=== PATIENT | female | born 1975 | race Caucasian/White ===

== ENCOUNTER → 2017-02-02 | Outpatient (CLI) | payer MEDICAID ==
--- NOTE | 2017-02-02 12:14 | Diagnostic Imaging Report ---
INDICATION: Left hip pain and paresthesia AP and frogleg views of the left hip are obtained. FINDINGS: No acute fracture or dislocation is identified. No abnormal lytic or sclerotic focus is seen, and there is no radiopaque foreign body. IMPRESSION: No acute abnormality. Dictated by: Dictated on workstation # [id number]
== END ==
LOC: RAD 11:55
PROVIDERS: ATTEND Family Medicine
DX: M25.552 Pain in left hip (principal)
CPT/HCPCS: 73502

== ENCOUNTER → 2017-02-16 | Outpatient (CLI) | payer MEDICAID ==
[2017-02-16 11:50] LABS: MEAN PLATELET VOLUME 10.8 FL (7.4-10.4); RED BLOOD COUNT 4.92 10^6/uL (4.35-5.85); RED CELL DISTRIBUTION WIDTH 12.7 % (10.0-14.5); WHITE BLOOD COUNT 10.8 10^3/uL (4.3-11.0)
[2017-02-16 12:05] LABS: ALANINE AMINOTRANSFERASE 16 U/L (0-55); ALBUMIN 4.3 GM/DL (3.2-4.5); ANION GAP 9 MMOL/L (5-14); ASPARTATE AMINO TRANSFERASE 14 U/L (5-34); BILIRUBIN,TOTAL 0.3 MG/DL (0.1-1.0); BLOOD UREA NITROGEN 8 MG/DL (7-18); BUN/CREATININE RATIO 9; CALCIUM 9.6 MG/DL (8.5-10.1); CARBON DIOXIDE 29 MMOL/L (21-32); CHLORIDE 102 MMOL/L (98-107); CREATININE SERUM 0.87 MG/DL (0.60-1.30); GFR ESTIMATED > 60; GLUCOSE 87 MG/DL (70-105); POTASSIUM 2.9 MMOL/L (3.6-5.0); SODIUM 140 MMOL/L (135-145)
== END ==
LOC: LAB 11:31
PROVIDERS: ATTEND Family Medicine
DX: E53.8 Deficiency of other specified B group vitamins (principal); R53.83 Other fatigue
CPT/HCPCS: 36415; 80053; 82607; 85027; 85652; 86038; 86430

== ENCOUNTER → 2017-04-09 | Outpatient (CLI) | payer MEDICAID ==
[2017-04-09 11:37] LABS: BASOPHILS # (AUTO) 0.1 10^3/uL (0.0-0.1); BASOPHILS % (AUTO) 1 % (0-10); EOSINOPHILS # (AUTO) 0.3 10^3/uL (0.0-0.3); EOSINOPHILS % (AUTO) 3 % (0-10); HEMATOCRIT 36 % (35-52); HEMOGLOBIN 13.9 G/DL (11.5-16.0); LYMPHOCYTES # (AUTO) 2.4 X 10^3 (1.0-4.0); LYMPHOCYTES % (AUTO) 25 % (12-44); MEAN CORPUSCULAR HEMOGLOBIN 29 PG (25-34); MEAN CORPUSCULAR HGB CONC 39 G/DL (32-36); MEAN CORPUSCULAR VOLUME 74 FL (80-99); MONOCYTES # (AUTO) 0.5 X 10^3 (0.0-1.0); MONOCYTES % (AUTO) 5 % (0-12); NEUTROPHILS # (AUTO) 6.3 X 10^3 (1.8-7.8); NEUTROPHILS % (AUTO) 66 % (42-75); PLATELET COUNT 304 10^3/uL (130-400); RED BLOOD COUNT 4.79 10^6/uL (4.35-5.85); RED CELL DISTRIBUTION WIDTH 13.1 % (10.0-14.5); WHITE BLOOD COUNT 9.5 10^3/uL (4.3-11.0)
[2017-04-09 11:54] LABS: URIC ACID 4.9 MG/DL (2.6-7.2)
[2017-04-09 11:58] LABS: ERYTHROCYTE SEDIMENTATION RATE 7 MM/HR (0-20)
== END ==
LOC: LAB 11:21
PROVIDERS: ATTEND Nurse Practitioner Family
DX: M79.1 Myalgia (principal); M25.50 Pain in unspecified joint
CPT/HCPCS: 36415; 84550; 85025; 85652; 86038; 86141; 86200; 86430

== ENCOUNTER → 2017-04-13 | Outpatient (CLI) | payer MEDICAID ==
[~2017-04-13] VITALS: Ht 157.5 cm; Wt 67.1 kg
[~2017-04-13] MED LIST: GADOBUTROL 7.5 MMOL/7.5 ML (GADAVIST) VIAL IV ONE; IOHEXOL 300 MG/ML 50 ML (OMNIPAQUE 300) VIAL IV ONE
[2017-04-13 09:10] VITALS: BP 127/80
[2017-04-13 09:34] VITALS: BP 121/60
--- NOTE | 2017-04-13 10:57 | Diagnostic Imaging Report ---
EXAMINATION: Magnetic resonance imaging of the left shoulder with intra-articular contrast. DATE: 04/13/2017. COMPARISON: Left shoulder arthrogram 04/13/2017. HISTORY: 41-year-old female, left shoulder pain. No known injury. TECHNIQUE: Magnetic Resonance Imaging sequences were performed of the shoulder following the intra-articular administration of contrast. FINDINGS: ROTATOR CUFF, LIGAMENTS, TENDONS, AND MUSCLES: There is contrast in the subacromial subdeltoid bursa. The communication appears to be via the very posterior aspect of the supraspinatus tendon near the supraspinatus infraspinatus junction with very thin communication estimated at approximately 2 mm in width. This is difficult to visualize on the coronal sequences. There is no tendon retraction. The infraspinatus, teres minor, and subscapularis tendons are intact. There is normal rotator cuff muscle bulk and signal. LONG HEAD OF BICEPS: The biceps labral attachment and long head of the biceps tendon is intact. The long head of the biceps tendon is normally positioned within the bicipital groove. GLENOHUMERAL JOINT: The humeral head is well positioned relative to the glenoid. The labrum is intact. There is no identified paralabral cyst. The articular cartilage is grossly intact. There is no intra-articular body or prominent synovitis. ACROMIOCLAVICULAR JOINT: The acromioclavicular joint is normally aligned. The coracoclavicular and coracoacromial ligaments are intact. There are no degenerative changes of the acromioclavicular joint. BONE: The bones all have normal configuration. The bone marrow signal is within normal limits. Specifically, negative for fracture, osteomyelitis, osteonecrosis, or marrow replacing process. BURSAE AND SOFT TISSUES: There is contrast in the subacromial subdeltoid bursa. Additional soft tissue evaluation is unremarkable. IMPRESSION: 1. Mild irregularity of the posterior aspect of the supraspinatus tendon with extension of contrast into the subacromial subdeltoid bursa through the posterior aspect of the supraspinatus tendon. This likely relates to a thin perforation of the tendon. There is no tendon retraction. The additional rotator cuff tendons are intact. Normal rotator cuff muscle bulk and signal. 2. Intact acromioclavicular joint. 3. Intact labrum. Glenohumeral joint evaluation is unremarkable. 4. No acute fracture, bone contusion, or evidence of osteonecrosis. Dictated by: Dictated on workstation # [id number]
--- NOTE | 2017-04-13 11:10 | Diagnostic Imaging Report ---
INDICATION: Shoulder pain. PROCEDURE: The patient was placed on the table in the supine position. The patient's shoulder was prepped and draped in the usual sterile fashion. Local anesthesia was obtained with 2% lidocaine. A needle was advanced into the glenohumeral joint under fluoroscopic control. A mixture of saline, Omnipaque and gadolinium was then infused. The needle was removed and adequate hemostasis was obtained. The patient tolerated the procedure well and left the department in stable condition. IMPRESSION: Successful shoulder injection prior to MRI, as described above. Dictated by: Dictated on workstation # [id number]
== END ==
LOC: RAD 08:55
PROVIDERS: ATTEND Nurse Practitioner Family
DX: M75.82 Other shoulder lesions, left shoulder (principal)
CPT/HCPCS: 23350; 73040; 73222

== ENCOUNTER 2018-06-06 16:11 | Emergency (ER) | payer MEDICAID ==
[~2018-06-06] VITALS: Ht 152.4 cm; Wt 70.3 kg
[2018-06-06] MEDS ORDERED: TETANUS,DIPTH,PERTUSS P/F (BOOSTRIX) 0.5 ML VIAL IM ONE (16:30)
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
[2018-06-06 18:14] VITALS: BP 109/79
--- OUTSIDE RECORDS SUMMARY | 2018-06-06 18:40 | XMS REPORT ---
Author Author ALPHONSE DEXTER Organization [facility] Address [address] [place] [address] Care Team Providers Care Flavor Extractor Name Role Phone ALPHONSE DEXTER Unavailable PROBLEMS Type Condition ICD9-CM Code [id number] Code Onset Dates Condition Status SNOMED Code Problem Fibromyalgia M79.7 Active 828750296 Problem History of vitamin B deficiency Z86.39 Active 710727228 ALLERGIES No Information ENCOUNTERS Encounter Location Date Diagnosis [place] [id number] [place] [phone] Nov, [place] [id number] [place] [address] [phone]- [phone] Nov, Fibromyalgia M79.7 [place] [id number] [place] [address] [phone]- [phone] Nov, Fibromyalgia M79.7 [place] [id number] [place] [address] [phone]- [phone] Nov, [place] [id number] [place] [address] [phone] Nov, Fibromyalgia M79.7 [place] [id number] [place] [address] [phone]- [phone] Oct, Myalgia M79.1 and History of vitamin B deficiency Z86.39 IMMUNIZATIONS No Known Immunizations SOCIAL HISTORY Never Assessed REASON FOR VISIT PLAN OF CARE VITAL SIGNS MEDICATIONS Medication Instructions Dosage Frequency Start Date End Date Duration Status Cymbalta 30 MG Orally 3 times a day 1 capsule 8h Nov, 30 day(s ) Active RESULTS No Results PROCEDURES No Known procedures INSTRUCTIONS MEDICATIONS ADMINISTERED No Known Medications MEDICAL (GENERAL) HISTORY Type Description Date Medical History Depression Medical History Anxiety Surgical History Kidney Surgery Surgical History x3 Surgical History Hernia repair 2014 Surgical History Tubal ligation 2014 Hospitalization History Psychiatric stay 2006
--- OUTSIDE RECORDS SUMMARY | 2018-06-06 18:40 | XMS REPORT ---
Author Author ALPHONSE DEXTER Organization [facility] [place] Address [address] [place] [address] Care Team Providers Care Microsoft Net Developer Name Role Phone ALPHONSE DEXTER Unavailable PROBLEMS Type Condition ICD9-CM Code MAE43-FF Code Onset Dates Condition Status SNOMED Code Problem Fibromyalgia M79.7 Active 161495498 Problem History of vitamin B deficiency Z86.39 Active 838782344 ALLERGIES No Information ENCOUNTERS Encounter Location Date Diagnosis [place] [id number] [place] [address] [phone] Nov, [place] [id number] [place] [address] [phone]- [phone] Nov, Fibromyalgia M79.7 [facility] [place] [id number] [place] [address] 33265- [phone] Nov, Fibromyalgia M79.7 [facility] [place] [id number] [place] [address] [phone]- [phone] Nov, [facility] [place] [id number] [place] [address] [phone]- [phone] Nov, Fibromyalgia M79.7 [facility] [place] [id number] [place] [address] [phone]- [phone] Oct, Myalgia M79.1 and History of vitamin B deficiency Z86.39 IMMUNIZATIONS No Known Immunizations SOCIAL HISTORY Never Assessed REASON FOR VISIT Medication question PLAN OF CARE VITAL SIGNS MEDICATIONS Unknown Medications RESULTS No Results PROCEDURES No Known procedures INSTRUCTIONS MEDICATIONS ADMINISTERED No Known Medications MEDICAL (GENERAL) HISTORY Type Description Date Medical History Depression Medical History Anxiety Surgical History Kidney Surgery Surgical History x3 Surgical History Hernia repair 2014 Surgical History Tubal ligation 2014 Hospitalization History Psychiatric stay 2005
--- OUTSIDE RECORDS SUMMARY | 2018-06-06 18:40 | XMS REPORT ---
Author Author ALPHONSE DEXTER Organization [facility] Address [address] [place] [address] Care Team Providers Care Transit Survey Worker Name Role Phone ALPHONSE DEXTER Unavailable PROBLEMS Type Condition ICD9-CM Code ZPQ65-NX Code Onset Dates Condition Status SNOMED Code Problem Fibromyalgia M79.7 Active 219548675 Problem History of vitamin B deficiency Z86.39 Active 053171938 ALLERGIES No Information ENCOUNTERS Encounter Location Date Diagnosis [place] [id number] [place] [address] [phone] Nov, [place] [id number] [place] [address] [phone]- [phone] Nov, Fibromyalgia M79.7 [place] [id number] [place] [address] 55058- [phone] Nov, Fibromyalgia M79.7 [place] [id number] [place] [address] [phone] Nov, [place] [id number] [place] [address] 83262- [phone] Nov, Fibromyalgia M79.7 [place] [id number] [place] [address] [phone]- [phone] Oct, Myalgia M79.1 and History of vitamin B deficiency Z86.39 IMMUNIZATIONS No Known Immunizations SOCIAL HISTORY Never Assessed REASON FOR VISIT CAMRYN Navarro PLAN OF CARE VITAL SIGNS MEDICATIONS Medication Instructions Dosage Frequency Start Date End Date Duration Status Keppra 500 mg Orally Twice a day 1 tablet 12h Nov, 30 day(s) Active RESULTS No Results PROCEDURES No Known procedures INSTRUCTIONS MEDICATIONS ADMINISTERED No Known Medications MEDICAL (GENERAL) HISTORY Type Description Date Medical History Depression Medical History Anxiety Surgical History Kidney Surgery Surgical History x3 Surgical History Hernia repair 2014 Surgical History Tubal ligation 2014 Hospitalization History Psychiatric stay 2006
--- OUTSIDE RECORDS SUMMARY | 2018-06-06 18:41 | XMS REPORT | Continuity of Care Document ---
Author Author [facility] Address [address] [place] [address] Care Team Providers Care Ocean Biologist Name Role Phone Eliza Cadet DO Unavailable Insurance Providers Payer Name Policy Number Subscriber Name Relationship [facility] [id number] IRINA BURKE PATIENT/SELF Problems No problem information available. Medications No medication information available. Social History No social history. Hospital Discharge Instructions No hospital discharge instructions. Plan of Care No plan of care. Functional Status No functional status results. Allergies, Adverse Reactions, Alerts Allergen Type Severity Reaction Status Last Updated UNABLE TO ASSESS Allergy Unknown Active 08/29/16 Immunizations No Known History of Immunizations. Vital Signs No Known Vital Signs Results. Results No known relevant diagnostic tests, laboratory data and/or discharge summary. Procedures No Known History of Procedures. Encounters Encounter Location Arrival/Admit Date Discharge/Depart Date Attending Provider Discharged [facility] 12/05/16 4:24pm 01/03/17 Eliza Cadet DO Discharged [facility] 11/25/16 3:41pm 12/04/16 Eliza Cadet DO Registered [facility] 11/20/16 10:14am Eliza Cadet DO Registered [facility] 11/13/16 6:51am Eliza Cadet DO Registered [facility] 10/31/16 12:31pm Eliza Cadet DO
--- OUTSIDE RECORDS SUMMARY | 2018-06-06 18:41 | XMS REPORT ---
Author Author ALPHONSE DEXTER Organization [facility] Address [address] [place] [address] Care Team Providers Care Bias Machine Operator Helper Name Role Phone ALPHONSE DEXTER Unavailable PROBLEMS Type Condition ICD9-CM Code SNM14-RR Code Onset Dates Condition Status SNOMED Code Problem Fibromyalgia M79.7 Active 360320759 Problem History of vitamin B deficiency Z86.39 Active 679471522 ALLERGIES No Known Allergies ENCOUNTERS Encounter Location Date Diagnosis [place] [address] [phone]- [phone] Nov, [place] [address] 29628- 2476 Nov, Fibromyalgia M79.7 [place] [address] 90709- 5341 Nov, Fibromyalgia M79.7 [place] [address] [phone]- [phone] Nov, [place] [address] [id number] [place] [address] [phone]- [phone] Nov, Fibromyalgia M79.7 [place] [address] 81405- [phone] Oct, Myalgia M79.1 and History of vitamin B deficiency Z86.39 IMMUNIZATIONS No Known Immunizations SOCIAL HISTORY Never Assessed REASON FOR VISIT Establish Care - ROSANGELA Early, PHQ2, AUDIT C PLAN OF CARE Activity Details Follow Up Will call after review of records Reason: VITAL SIGNS Height 61.5 in 2017-10-27 Weight 152.5 lbs 2017-10-27 Temperature 98.4 degrees Fahrenheit 2017-10-27 Heart Rate 78 bpm 2017-10-27 Respiratory Rate 20 2017-10-27 BMI 28.34 kg/m2 2017-10-27 Blood pressure systolic 108 mmHg 2017-10-27 Blood pressure diastolic 70 mmHg 2017-10-27 MEDICATIONS Medication Instructions Dosage Frequency Start Date End Date Duration Status Flexeril 10 orally PRN 1 tablet Active HydrOXYzine HCl 50 mg Orally PRN 1 tablet Active RESULTS No Results PROCEDURES Procedure Date Ordered Result Body Site LAB NOT BILLED BY [facility] October 27, 2017 VENNEDRA, ROUTINE* October 27, 2017 INSTRUCTIONS MEDICATIONS ADMINISTERED No Known Medications MEDICAL (GENERAL) HISTORY Type Description Date Medical History Depression Medical History Anxiety Surgical History Kidney Surgery Surgical History x3 Surgical History Hernia repair 2014 Surgical History Tubal ligation 2014 Hospitalization History Psychiatric stay 2006
--- OUTSIDE RECORDS SUMMARY | 2018-06-06 18:41 | XMS REPORT ---
Author Author ALPHONSE DEXTER Organization [facility] Address [address] [place] [address] Care Team Providers Care Real Estate Administrator Name Role Phone ALPHONSE DEXTER Unavailable PROBLEMS Type Condition ICD9-CM Code ULB45-TL Code Onset Dates Condition Status SNOMED Code Problem Fibromyalgia M79.7 Active 815666104 Problem History of vitamin B deficiency Z86.39 Active 351142083 ALLERGIES No Information ENCOUNTERS Encounter Location Date Diagnosis [place] [id number] [place] [address] [phone] Nov, [place] [id number] [place] [address] 49233- [phone] Nov, Fibromyalgia M79.7 [facility] [id number] [place] [address] [phone]- [phone] Nov, Fibromyalgia M79.7 [place] [id number] [place] [address] [phone]- [phone] Nov, [place] [id number] [place] [address] [phone]- [phone] Nov, Fibromyalgia M79.7 [place] [id number] [place] [address] 74403- 2354 Oct, Myalgia M79.1 and History of vitamin B deficiency Z86.39 IMMUNIZATIONS No Known Immunizations SOCIAL HISTORY Never Assessed REASON FOR VISIT PLAN OF CARE VITAL SIGNS MEDICATIONS Medication Instructions Dosage Frequency Start Date End Date Duration Status Lyrica 100 mg Orally 2 times a day 1 capsule 12h Nov, Active RESULTS No Results PROCEDURES No Known procedures INSTRUCTIONS MEDICATIONS ADMINISTERED No Known Medications MEDICAL (GENERAL) HISTORY Type Description Date Medical History Depression Medical History Anxiety Surgical History Kidney Surgery Surgical History x3 Surgical History Hernia repair 2014 Surgical History Tubal ligation 2013 Hospitalization History Psychiatric stay 2005
--- OUTSIDE RECORDS SUMMARY | 2018-06-06 18:41 | XMS REPORT | Continuity of Care Document ---
Author Author [facility] Address [address] [place] [address] Care Team Providers Care Smeller Name Role Phone Eliza Cadet DO Unavailable Insurance Providers Payer Name Policy Number Subscriber Name Relationship [facility] [id number] IRINA BURKE PATIENT/SELF Problems No problem information [...] Arrival/Admit Date Discharge/Depart Date Attending Provider Discharged Rec[facility]ring [facility] 08/21/16 11:02am 09/03/16 Eliza Cadet DO Registered [facility] 08/29/16 9:11am Eliza Cadet DO Registered [facility] 08/25/16 9:52am Eliza Cadet DO Registered [facility] 08/25/16 9:34am Eliza Cadet DO Registered [facility] 08/25/16 9:27am Eliza Cadet DO Registered [facility] 08/14/16 11:27am Eliza Cadte DO
--- OUTSIDE RECORDS SUMMARY | 2018-06-06 18:41 | XMS REPORT | Continuity of Care Document ---
Author Author [facility] Address [address] [place] [address] Care Team Providers Care Soa Engineer Name Role Phone Eliza Cadet DO Unavailable Insurance Providers Payer Name Policy Number Subscriber Name Relationship [facility] [id number] IRINA BURKE PATIENT/SELF Problems No problem information [...] Arrival/Admit Date Discharge/Depart Date Attending Provider Discharged [facility] 09/04/16 3:22pm 09/30/16 11: 41am Eliza Cadet DO Discharged [facility] 08/21/16 11:02am 09/03/16 Eliza Caedt DO Registered [facility] 08/29/16 9:11am Eliza Cadet DO Registered [facility] 08/25/16 9:52am Eliza Cadet DO Registered [facility] 08/25/16 9:34am Eliza Cadet DO Registered [facility] 08/25/16 9:27am Eliza Cadet DO Registered [facility] 08/14/16 11:27am Eliza Cadet DO
--- OUTSIDE RECORDS SUMMARY | 2018-06-06 18:41 | XMS REPORT | Continuity of Care Document ---
Author Author [facility] Address Unknown Phone Unavailable Allergies Active Description Code Type Severity Reaction Onset Reported/Identified Relationship to Patient Clinical Status Yes NO NAME AVAILABLE 69594 DRUG N/ A N/A Yes CODEINE 2670 N/A Vomiting Yes CODEINE SULFATE MODERATE GI PROBLEMS - NAUSEA Yes No Known Drug Allergy NKDA N/ A N/A 11/20/2016 Yes No Allergy Information Available [id number] Drug Allergy Unknown N/A 2017 Medications Medication Packaging Start Date Stop Date Route Dosage Sig Permethrin 50 MG/ML Topical Cream 04/11/2016 08/14/2016 1 Pravastatin Sodium 20 MG Oral Tablet 04/14/2016 11/20/2016 1 Q1D Esomeprazole 40 MG Delayed Release Oral Capsule 04/30/2016 08/14/2016 1 Q1D pantoprazole 40 MG Delayed Release Oral Tablet [Protonix] 06/04/2016 08/25/2016 1 Q1D Acetaminophen 325 MG / Hydrocodone Bitartrate 5 MG Oral Tablet 08/14/2016 08/25/2016 1 Prednisone 50 MG Oral Tablet 02/201708/25/2016 1 Q1D meloxicam 15 MG Oral Tablet [Mobic] 08/21/2016 1 Q1D Vitamin B 12 1 MG/ML Injectable Solution 08/27/2016 1 valacyclovir 1000 MG Oral Tablet [Valtrex] 09/02/2016 1 Cyclobenzaprine hydrochloride 10 MG Oral Tablet 10/31/2016 1 TID gabapentin 300 MG Oral Capsule 1 TID Diclofenac Sodium 75 MG Delayed Release Oral Tablet 11/20/2016 1 BID valacyclovir 1000 MG Oral Tablet [Valtrex] 11/21/2016 1 Esomeprazole 40 MG Delayed Release Oral Capsule [Nexium] 01/19/2017 1 Q1D METHYLPREDNISOLONE VIAL INJ 125 MG/2CC (SOLU-MEDROL VIAL) MG 02/13/2017 02/13/2017 ONCE&0215 Problems Date Dx Coded Attending Type Code Diagnosis Diagnosed By 04/15/2016 [place] DO, Eliza E F E78.5 Hyperlipidemia, unspecified [place] DO, Eliza E 04/15/2016 [place] DO, Eliza E F Z20.5 Contact with and (suspected) exposure to viral hepatitis [place] DO, Eliza E 08/14/2016 F M25.519 Pain in unspecified shoulder 08/18/2016 [place] DO, Eliza E F M25.512 Pain in left shoulder [place] DO, Eliza E 08/25/2016 F M79.642 Pain in left hand 08/25/2016 F R20.2 Paresthesia of skin 08/27/2016 [place] DO, Eliza E F R20.2 Paresthesia of skin [place] DO, Eliza E 08/27/2016 [place] DO, Eliza E F M79.642 Pain in left hand [place] DO, Eliza E 08/29/2016 F M79.642 Pain in left hand 08/29/2016 F R20.2 Paresthesia of skin 08/29/2016 F E53.8 Deficiency of other specified B group vitamins 09/02/2016 [place] DO, Eliza E F R20.2 Paresthesia of skin [place] DO, Eliza E 09/03/2016 [place] DO, Eliza E F J32.8 Other chronic sinusitis [place] DO, Eliza E 09/03/2016 [place] DO, Eliza E F R20.2 Paresthesia of skin [place] DO, Eliza E 09/11/2016 F E53.8 Deficiency of other specified B group vitamins 09/12/2016 [place] DO, Eliza E F M25.512 Pain in left shoulder [place] DO, Eliza E 10/09/2016 [place] DO, Eliza E F M25.512 Pain in left shoulder [place] DO, Eliza E 10/22/2016 [place], Ananya I F M25.812 Other specified joint disorders, left shoulder 10/31/2016 [place] DO, Eliza F M54.2 Cervicalgia 10/31/2016 [place] DO, Eliza F R25.2 Cramp and spasm 11/03/2016 [place], Ananya I F M25.812 Other specified joint disorders, left shoulder 11/04/2016 [place] DO, Eliza E F M54.2 Cervicalgia [place] DO, Eliza E 11/17/2016 [place] DO, Eliza E F M50.322 Other cervical disc degeneration at C5-C6 level [place] DO, Eliza E 11/20/2016 [place] DO, Eliza F M25.512 Pain in left shoulder 11/20/2016 [place] DO, Eliza F M54.5 Low back pain 11/20/2016 [place] DO, Eliza F M70.62 Trochanteric bursitis, left hip 11/20/2016 F E53.8 Deficiency of other specified B group vitamins 11/26/2016 [place] DO, Eliza E F M54.5 Low back pain [place] DO, Eliza E 12/17/2016 [place] DO, Eliza E F M25.552 Pain in left hip [place] DO, Eliza E 12/17/2016 [place] DO, Eliza E F M70.62 Trochanteric bursitis, left hip [place] DO, Eliza E 02/03/2017 YVES ANTOINE DO Ot M25.552 PAIN IN LEFT HIP 02/13/2017 Michael Chu 910.4 INSECT BITE, NONVENOMOUS OF FACE, NECK, AND SCALP EXCEPT EYE, WITHOUT MENTION OF INFECTION 02/13/2017 Michael Chu 911.4 INSECT BITE, NONVENOMOUS OF TRUNK, WITHOUT MENTION OF INFECTION 02/13/2017 Michael Chu 914.4 INSECT BITE, NONVENOMOUS, OF HAND(S) EXCEPT FINGER(S) ALONE, WITHOUT MENTION OF INFECTION 02/13/2017 Michael Chu S00.86XA INSECT BITE (NONVENOMOUS) OF OTHER PART OF HEAD, INIT ENCNTR 02/13/2017 Michael Chu S20.461A INSECT BITE (NONVENOMOUS) OF RIGHT BACK WALL OF THORAX, INIT 02/13/2017 Michael Chu S20.462A INSECT BITE (NONVENOMOUS) OF LEFT BACK WALL OF THORAX, INIT 02/13/2017 Michael Chu S60.562A INSECT BITE (NONVENOMOUS) OF LEFT HAND, INITIAL ENCOUNTER 02/19/2017 YVES ANTOINE DO Ot M25.552 PAIN IN LEFT HIP 03/05/2017 YVES ANTOINE DO Ot E53.8 DEFICIENCY OF OTHER SPECIFIED B GROUP 03/05/2017 GELLENDER DO, YVES Ordoñez Ot R53.83 OTHER FATIGUE 04/09/2017 ELINA WEEMS, YVES Ordoñez Ot M25.552 PAIN IN LEFT HIP 04/09/2017 ELINA WEEMS, YVES Ordoñez Ot E53.8 DEFICIENCY OF OTHER SPECIFIED B GROUP 04/09/2017 DAVIDLENDER , YVES Ordoñez Ot R53.83 OTHER FATIGUE 04/14/2017 ANGELLA MADDIE E DROP HAMMER PILE DRIVER OPERATOR Ot M75.82 OTHER SHOULDER LESIONS, LEFT SHOULDER 04/19/2017 ANGELLA MADDIE E DROP HAMMER PILE DRIVER OPERATOR Ot M75.82 OTHER SHOULDER LESIONS, LEFT SHOULDER 04/23/2017 ANGELLA MADDIE Nichole DROP HAMMER PILE DRIVER OPERATOR Ot M25.50 PAIN IN UNSPECIFIED JOINT 04/23/2017 ANGELLA MADDIE E DROP HAMMER PILE DRIVER OPERATOR Ot M79.1 MYALGIA 04/30/2017 ANGELLA MADDIE E DROP HAMMER PILE DRIVER OPERATOR Ot M75.82 OTHER SHOULDER LESIONS, LEFT SHOULDER Procedures Code Description [place] [address] OFFICE/OUTPATIENT VISIT, EST 08/23/2016 65843 OFFICE/OUTPATIENT VISIT, [facility] 08/29/2016 73300 ROUTINE VENIPUNCTURE 09/02/2016 8004 LAB TO OUTSIDE LAB NO CHARGE 09/02/2016 37788 OFFICE/OUTPATIENT VISIT, EST 09/02/2016 8001 NO CHARGE 09/08/2016 52170 THER/PROPH/DIAG INJ, SC/IM 09/08/2016 8001 NO CHARGE 09/11/2016 36845 THER/PROPH/DIAG INJ, SC/IM 09/11/2016 04954 THER/PROPH/DIAG INJ, SC/IM 09/26/2016 45095 DRAIN/INJECT, JOINT/BURSA 10/22/2016 00209 OFFICE/OUTPATIENT VISIT, EST 10/22/2016 J3301 TRIAMCINOLONE ACET INJ NOS 10/22/2016 60699 THER/PROPH/DIAG INJ, SC/IM 10/22/2016 46428 OFFICE/OUTPATIENT VISIT, EST 10/31/2016 38548 OFFICE/OUTPATIENT VISIT, EST 11/03/2016 40294 OFFICE/OUTPATIENT VISIT, EST 11/20/2016 Results Test Result Range HEPATITIS C VIRUS AB W/REFLEX - 04/11/16 11:59 HEPATITIS C VIR NON-REACTIVE NON-REACTIVE SIGNAL TO CUT O 0.01 <1.00 HCV RNA,QUANTI Test not performed COMP METABOLIC PROFILE - 04/11/16 11:59 ALBUMIN 3.9 g/dl 3.3-4.5 ALKALINE PHOSPHATASE 87 U/L 46-116 ANION GAP 10 mmol/L 8-16 BILIRUBIN TOTAL 0.2 mg/dl 0.0-1.2 GLUCOSE 75 mg/dl 70-99 BUN 7 mg/dl 5-21 CALCIUM 9.1 mg/dl 8.6-10.5 CHLORIDE 104 mmol/L 100-112 CARBON DIOXIDE 26 meq/L 21-33 AST/GOT 34 U/L 6-37 ALT/GPT 44 U/L 12-78 POTASSIUM 3.2 mmol/L 3.4-5.2 SODIUM 140 mmol/L 135-150 TOTAL PROTEIN 7.6 g/dl 6.4-8.2 CREATININE 0.85 mg/dl 0.60-1.30 GFR ESTIMATE > 60 mL/Min > 60 AG RATIO 1.1 0.7-2.0 LIPID PROFILE - 04/11/16 11:59 CHOLESTEROL 217 mg/dl 100-200 HDL LIPO 50 mg/dl 39-96 NON-HDL-C 167.0 mg/dL < 130 TRIGLYCERIDES 217 mg/dl <150 CHOL/HDL RATIO 4.34 <4.44 LDL CALCULATED 124 mg/dL 0-100 Basic Metabolic - 08/25/16 09:26 ANION GAP 9 mmol/L 8-16 GLUCOSE 87 mg/dL 70-99 BUN 14 mg/dL 5-21 CALCIUM 9.2 mg/dL 8.6-10.5 CHLORIDE 109 mmol/L 100-112 CARBON DIOXIDE 23 mg/dL 18-30 POTASSIUM 4.4 mmol/L 3.4-5.2 SODIUM 141 mmol/L 135-150 CREATININE 0.78 mg/dL 0.60-1.30 GFR ESTIMATE > 60 mL/Min > 60 TSH - REFLEX T4 - 08/25/16 09:26 TSH - REFLEX T4 1.79 uIU/mL 0.35-4.94 VITAMIN B12 - 08/25/16 09:26 VITAMIN B12 200 pg/mL 200-1100 VITAMIN D, 25 HYDROXY - 08/25/16 09:26 VITAMIN D 25-HY <4 ng/mL See Below VITAMIN D 25-HY 33 ng/mL 30-100 VITAMIN D 25-HY 33 ng/mL See Below Automated blood complete blood count (hemogram) panel - 02/16/17 11:41 Blood leukocytes automated count (number/volume) 10.8 10*3/uL 4.3-11.0 Blood erythrocytes automated count (number/volume) 4.92 10*6/uL 4.35-5.85 Venous blood hemoglobin measurement (mass/volume) 14.7 g/dL 11.5-16.0 Blood hematocrit (volume fraction) 43 % 35-52 Automated erythrocyte mean corpuscular volume 87 [foz_us] 80-99 Automated erythrocyte mean corpuscular hemoglobin (mass per erythrocyte) 30 pg 25-34 Automated erythrocyte mean corpuscular hemoglobin concentration measurement ( mass/volume) 34 g/dL 32-36 Automated erythrocyte distribution width ratio 12.7 % 10.0-14.5 Automated blood platelet count (count/volume) 375 10*3/uL 130-400 Automated blood platelet mean volume measurement 10.8 [foz_us] 7.4-10.4 Comprehensive metabolic panel - 02/16/17 11:41 Serum or plasma sodium measurement (moles/volume) 140 mmol/L 135-145 Serum or plasma potassium measurement (moles/volume) 2.9 mmol/L 3.6-5.0 Serum or plasma chloride measurement (moles/volume) 102 mmol/L 98-107 Carbon dioxide 29 mmol/L 21-32 Serum or plasma anion gap determination (moles/volume) 9 mmol/L 5-14 Serum or plasma urea nitrogen measurement (mass/volume) 8 mg/dL 7-18 Serum or plasma creatinine measurement (mass/volume) 0.87 mg/dL 0.60-1.30 Serum or plasma urea nitrogen/creatinine mass ratio 9 NRG Serum or plasma creatinine measurement with calculation of estimated glomerular filtration rate > NRG Serum or plasma glucose measurement (mass/volume) 87 mg/dL 70-105 Serum or plasma calcium measurement (mass/volume) 9.6 mg/dL 8.5-10.1 Serum or plasma total bilirubin measurement (mass/volume) 0.3 mg/dL 0.1-1.0 Serum or plasma alkaline phosphatase measurement (enzymatic activity/volume) 72 U/L 40-136 Serum or plasma aspartate aminotransferase measurement (enzymatic activity/ volume) 14 U/L 5-34 Serum or plasma alanine aminotransferase measurement (enzymatic activity/volume ) 16 U/L 0-55 Serum or plasma protein measurement (mass/volume) 7.0 g/dL 6.4-8.2 Serum or plasma albumin measurement (mass/volume) 4.3 g/dL 3.2-4.5 Erythrocyte sedimentation rate by westergren method - 02/16/17 11:41 Erythrocyte sedimentation rate by westergren method 5 mm 0-20 Serum or plasma rheumatoid factor measurement (units/volume) - 02/16/17 11:41 Serum or plasma rheumatoid factor measurement (units/volume) NEGATIVE NEGATIVE [id number] - 02/16/17 11:41 Screening antinuclear antibody (JANAE) assay by enzyme immunoassay <1: 80 <1:80 Cyanocobalamin measurement - 02/16/17 11:41 Vitamin B12 377 pg/mL 200-1000 Complete blood count (CBC) with automated white blood cell (WBC) differential - 04/09/17 11:32 Blood leukocytes automated count (number/volume) 9.5 10*3/uL 4.3-11.0 Blood erythrocytes automated count (number/volume) 4.79 10*6/uL 4.35-5.85 Venous blood hemoglobin measurement (mass/volume) 13.9 g/dL 11.5-16.0 Blood hematocrit (volume fraction) 36 % 35-52 Automated erythrocyte mean corpuscular volume 74 [foz_us] 80-99 Automated erythrocyte mean corpuscular hemoglobin (mass per erythrocyte) 29 pg 25-34 Automated erythrocyte mean corpuscular hemoglobin concentration measurement ( mass/volume) 39 g/dL 32-36 Automated erythrocyte distribution width ratio 13.1 % 10.0-14.5 Automated blood platelet count (count/volume) 304 10*3/uL 130-400 Automated blood platelet mean volume measurement 10.0 [foz_us] 7.4-10.4 Automated blood neutrophils/100 leukocytes 66 % 42-75 Automated blood lymphocytes/100 leukocytes 25 % 12-44 Blood monocytes/100 leukocytes 5 % 0-12 Automated blood eosinophils/100 leukocytes 3 % 0-10 Automated blood basophils/100 leukocytes 1 % 0-10 Blood neutrophils automated count (number/volume) 6.3 10*3 1.8-7.8 Blood lymphocytes automated count (number/volume) 2.4 10*3 1.0-4.0 Blood monocytes automated count (number/volume) 0.5 10*3 0.0-1.0 Automated eosinophil count 0.3 10*3/uL 0.0-0.3 Automated blood basophil count (count/volume) 0.1 10*3/uL 0.0-0.1 Serum or plasma uric acid measurement (mass/volume) - 04/09/17 11:32 Serum or plasma uric acid measurement (mass/volume) 4.9 mg/dL 2.6-7.2 Erythrocyte sedimentation rate by westergren method - 04/09/17 11:32 Erythrocyte sedimentation rate by westergren method 7 mm 0-20 Serum or plasma C reactive protein measurement (mass/volume) - 04/09/17 11:32 Serum or plasma C reactive protein measurement (mass/volume) 0.11 mg /dL 0.00-0.50 Serum or plasma rheumatoid factor measurement (units/volume) - 04/09/17 11:32 Serum or plasma rheumatoid factor measurement (units/volume) NEGATIVE NEGATIVE HAH2447 - 04/09/17 11:32 Screening antinuclear antibody (JANAE) assay by enzyme immunoassay <1: 80 <1:80 Serum cyclic citrullinated peptide antibody assay (units/volume) - 04/09/17 11: 32 Serum cyclic citrullinated peptide antibody assay (units/volume) 1.8 % 0.0-19.0 VITAMIN B12 - 10/27/17 17:22 VITAMIN B12 315 pg/mL 200-1100 Encounters ACCT No. Visit Date/Time Discharge Status Pt. Type Provider Facility Loc./Unit Complaint [id number] 12/03/2016 12:43:53 12/03/2016 23:59:59 CLS Outpatient [place] [id number] 02/13/2017 01:45:00 02/13/2017 02:48:00 [id number] 02/13/2017 02:16:24 Document Registration [id number] 04/13/2017 08:55:00 04/13/2017 23:59:59 CLS Outpatient MADDIE PERALES APRN [facility] RAD LEFT SHOULDER PAIN [id number] 04/09/2017 11:21:00 04/09/2017 23:59:59 CLS Outpatient MADDIE PERALES APRN [facility] LAB MYALGIS ARTHRALGIS [id number] 02/16/2017 11:31:00 02/16/2017 23:59:59 CLS Outpatient YVES ANTOINE DO [facility] LAB HURTING ALL OVER,LOW B12 [id number] 02/02/2017 11:55:00 02/02/2017 23:59:59 CLS Outpatient YVES ANTOINE DO [facility] RAD LEFT HIP PAIN 4 MONTHS [id number] 12/05/2016 16:24:00 01/03/2017 00:00:00 DIS R Eliza Cadet DO [facility] PTC [id number] 11/25/2016 15:41:00 12/04/2016 00:00:00 DIS R Chichi WEEMS [facility] PTC [id number] 11/20/2016 10:14:00 11/20/2016 23:59:59 [id number] 11/13/2016 06:51:00 11/13/2016 23:59:59 CLS Outpatient Chichi WEEMS, [facility] RAD [id number] 10/31/2016 12:31:00 10/31/2016 23:59:59 [facility] [id number] 09/04/2016 15:22:00 09/30/2016 00:00:00 DIS R Chichi WEEMS, [facility] PTC [id number] 08/21/2016 11:02:00 09/03/2016 00:00:00 DIS R Chichi WEEMS [facility] PTC [id number] 08/29/2016 09:11:00 08/29/2016 23:59:59 [facility] [id number] 08/25/2016 09:52:00 08/25/2016 23:59:59 [facility] [id number] 08/25/2016 09:34:00 08/25/2016 23:59:59 [facility] [id number] 08/25/2016 09:27:00 08/25/2016 23:59:59 CLS Outpatient [facility] LAB [id number] 08/14/2016 11:27:00 08/14/2016 23:59:59 [facility] [id number] 04/11/2016 13:31:00 04/11/2016 23:59:59 [facility]CLINIC [id number] 11/20/2016 12:05:00 11/20/2016 23:59:59 [facility] Outpatient [facility] [id number] 11/20/2016 09:18:00 11/20/2016 23:59:59 [facility] [id number] 11/03/2016 13:59:00 11/03/2016 23:59:59 [facility] Outpatient Ananya [facility] [id number] 10/31/2016 11:20:00 10/31/2016 23:59:59 [facility] [id number] 10/22/2016 13:38:00 10/22/2016 23:59:59 [facility] Outpatient [facility] [id number] 10/22/2016 12:52:00 10/22/2016 23:59:59 [facility] Outpatient Ananya [facility] [id number] 09/26/2016 14:35:00 09/26/2016 23:59:59 [facility] Outpatient [facility] [id number] 09/11/2016 11:53:00 09/11/2016 23:59:59 [facility] Outpatient [facility] [id number] 08/29/2016 14:23:00 08/29/2016 23:59:59 [facility] Outpatient [facility] [id number] 08/29/2016 13:28:00 08/29/2016 23:59:59 [facility] Outpatient [facility] [id number] 08/25/2016 08:31:00 08/25/2016 23:59:59 [facility] [id number] 08/14/2016 10:46:00 08/14/2016 23:59:59 CLS Outpatient [facility] [id number] 01/19/2017 20:29:00 Document Registration [id number] 11/21/2016 09:52:00 Document Registration [id number] 11/20/2016 16:38:00 Document Registration [id number] 11/20/2016 12:34:00 Document Registration [id number] 11/20/2016 10:35:00 Document Registration [id number] 11/03/2016 17:57:00 Document Registration [id number] 11/03/2016 09:29:00 Document Registration [id number] 10/22/2016 16:36:00 Document Registration [id number] 10/22/2016 14:58:00 Document Registration [id number] 09/26/2016 16:35:00 Document Registration [id number] 09/12/2016 09:13:00 Document Registration [id number] 09/02/2016 15:13:00 Document Registration [id number] 08/29/2016 16:01:00 Document Registration [id number] 08/29/2016 15:55:00 Document Registration [id number] 08/27/2016 16:29:00 Document Registration [id number] 08/25/2016 09:49:00 Document Registration [id number] 08/25/2016 08:31:00 Document Registration [id number] 08/21/2016 14:54:00 Document Registration [id number] 08/14/2016 12:20:00 Document Registration [id number] 08/14/2016 11:57:00 Document Registration [id number] 08/14/2016 11:57:00 Document Registration [id number] 05/20/2018 08:00:00 05/20/2018 23:59:59 CLS Outpatient ISACC ARRINGTON, ALPHONSE POP [id number] 10/27/2017 16:20:00 Document Registration
--- OUTSIDE RECORDS SUMMARY | 2018-06-06 18:41 | XMS REPORT ---
Author Author ALPHONSE DEXTER Organization [facility] Address [address] [place] [address] Care Team Providers Care Breaker Layer Name Role Phone ALPHONSE DEXTER Unavailable PROBLEMS Type Condition ICD9-CM Code [id number] Code Onset Dates Condition Status SNOMED Code Problem Fibromyalgia M79.7 Active 805660501 Problem History of vitamin B deficiency Z86.39 Active 648664607 ALLERGIES No Information ENCOUNTERS Encounter Location Date Diagnosis [place] [id number] [place] [phone] Nov, [place] [id number] [place] [place] [phone] Nov, Fibromyalgia M79.7 [facility] [id number] [place] [place] [address] [phone] Nov, Fibromyalgia M79.7 [facility] [id number] [place] [address] [phone] Nov, [facility] [id number] [place] [phone] Nov, Fibromyalgia M79.7 [facility] [id number] [place] [address] [phone] Oct, Myalgia M79.1 and History of vitamin B deficiency Z86.39 IMMUNIZATIONS No Known Immunizations SOCIAL HISTORY Never Assessed REASON FOR VISIT PA PLAN OF CARE VITAL SIGNS MEDICATIONS Unknown Medications RESULTS No Results PROCEDURES No Known procedures INSTRUCTIONS MEDICATIONS ADMINISTERED No Known Medications MEDICAL (GENERAL) HISTORY Type Description Date Medical History Depression Medical History Anxiety Surgical History Kidney Surgery Surgical History x3 Surgical History Hernia repair 2014 Surgical History Tubal ligation 2014 Hospitalization History Psychiatric stay 2005
--- OUTSIDE RECORDS SUMMARY | 2018-06-06 18:41 | XMS REPORT | Continuity of Care Document ---
Author Author [facility] Address [address] [place] [address] Care Team Providers Care Certified Surgical Assistant Name Role Phone Eliza Cadet DO Unavailable Insurance Providers Payer Name Policy Number Subscriber Name Relationship [facility] [id number] IRINA BURKE PATIENT/SELF Problems No problem information [...] Arrival/Admit Date Discharge/Depart Date Attending Provider Discharged [facility] 11/25/16 3:41pm 12/04/16 Eliza Cadet DO Registered [facility] 11/20/16 10:14am Eliza Cadet DO Registered [facility] 11/13/16 6:51am Eliza Cadet DO Registered [facility] 10/31/16 12:31pm Eliza Cadet DO Discharged [facility] 09/04/16 3:22pm 09/30/16 11: 41am Eliza Cadet DO
== END 2018-06-06 18:14 | disposition home or self-care (01) ==
LOC: EDUNIT# 16:11 → ER 16:13
DX: M79.89 Other specified soft tissue disorders (principal); F41.9 Anxiety disorder, unspecified; F32.9 Major depressive disorder, single episode, unspecified; F17.210 Nicotine dependence, cigarettes, uncomplicated; Z23 Encounter for immunization; Y04.0XXA Assault by unarmed brawl or fight, initial encounter
CPT/HCPCS: 70486; 73130; 90715

== ENCOUNTER 2023-03-04 17:21 | Emergency (ER) | payer SELFPAY ==
[~2023-03-04] VITALS: Ht 152 cm; Wt 47.6 kg
[2023-03-04 18:05] LABS: BILIRUBIN,URINE NEGATIVE (NEGATIVE); CLARITY,URINE CLEAR; COLOR,URINE YELLOW; GLUCOSE, URINE (UA) NEGATIVE (NEGATIVE); KETONES,URINE NEGATIVE (NEGATIVE); LEUKOCYTE ESTERASE ,URINE 1+ (NEGATIVE); NITRITE,URINE POSITIVE (NEGATIVE); PH,URINE 5.5 (5-9); PROTEIN,URINE NEGATIVE (NEGATIVE)
[2023-03-04 18:06] LABS: BACTERIA,URINE LARGE /HPF
--- NOTE | 2023-03-04 18:06 | ED Back Pain ---
General Chief Complaint: Back Problems Stated Complaint: BACK PAIN Nursing Triage Note: PT TO TRIAGE VIA WC WITH C/O LOWER BACK PAIN AFTER "PULLING BACK OUT MOVING FURNITURE". PT RATES PAIN 7/10, UNRELIEVED BY IBUPROFEN. PT HAS NO OTHER SIGNIFICANT HEALTH HX. PT NODDING OFF DURING ASSESSMENT. Source of Information: Patient Exam Limitations: No Limitations (ROSALIE ABDI) History of Present Illness Date Seen by Provider: Mar 04, 2023 Time Seen by Provider: 18:03 Initial Comments Patient is a 47-year-old female who presents ED with lower back pain. Patient states she has been experiencing low back pain for the past 2 months. Located the right lower back. She states it feels like her muscle spasms which resulted in of her lower back locking up. This pain became worse 3 days ago after moving furniture. She states she was pushing the furniture at that time. She has been sleeping in her truck setting over the past year. She has been taken ibuprofen without much improvement. She states she is having difficulty moving. She denies of any bowel or urine incontinence, saddle paresthesia, lower extremity weakness or sensory changes. She denies any specific falls. She denies any fever, chills, drug use, headache, dizziness, chest pain short of breath or abdominal pain. (ROSALIE ABDI) Allergies and Home Medications Allergies Coded Allergies: No Allergy Information Available (Unverified , 04/13/17) Patient Home Medication List Home Medication List Reviewed: Yes (ROSALIE ABDI) Cephalexin (Cephalexin) 500 Mg Tablet, 500 MG PO BID Prescribed by: CAMRYN CALDWELL on 03/04/231900 Ketorolac Tromethamine (Ketorolac Tromethamine) 10 Mg Tablet, 10 MG PO TID Prescribed by: CAMRYN CALDWELL on 03/04/231899 Methocarbamol (Methocarbamol) 500 Mg Tablet, 500 MG PO Q6-8HR Prescribed by: CAMRYN CALDWELL on 03/04/231899 Methylprednisolone (Methylprednisolone Dose Pack) 4 Mg Tab.ds.pk, 4 MG PO UD Prescribed by: CAMRYN CALDWELL on 03/04/231899 Review of Systems Constitutional: No chills, No diaphoresis, No malaise, No weakness EENTM: No ear pain, No blurred vision, No double vision Respiratory: No cough, No dyspnea on exertion Cardiovascular: No chest pain Gastrointestinal: No abdominal pain, No diarrhea, No nausea, No vomiting Genitourinary: No decreased output, No discharge Musculoskeletal: back pain; No joint swelling; muscle pain, muscle stiffness Skin: No change in color, No change in hair/nails (ROSALIE ABDI) All Other Systems Reviewed Negative Unless Noted: Yes (ROSALIE ABDI) Past Norgsrb-Aipfqi-Lecsre Hx Immunizations Up To Date Influenza Vaccine Up-to-Date: No; Not Current (ROSALIE ABDI) Past Medical History Surgeries: No Respiratory: No Cardiac: No Neurological: No Genitourinary: No Gastrointestinal: No Musculoskeletal: No Endocrine: No Cancer: No Psychosocial: Yes Anxiety, Depression Integumentary: No (ROSALIE ABDI) Physical Exam Vital Signs Vital Signs - First Documented 03/04/23 17:37 Temp 36.5 Pulse 77 Resp 20 B/P (MAP) 104/52 (69) Pulse Ox 100 O2 Delivery Room Air (ISAI QUINONEZ MD) Vital Signs Capillary Refill : Less Than 3 Seconds (ROSALIE ABDI) Height, Weight, BMI Height: 5'2.00" Weight: 155lbs. 0.0oz. 70.845265aq; 20.00 BMI Method:Stated General Appearance: No Apparent Distress, WD/WN HEENT: PERRL/EOMI, TMs Normal, Normal ENT Inspection, Pharynx Normal Neck: Full Range of Motion, Normal Inspection, Non Tender, Supple Cardiovascular: Regular Rate, Rhythm, No Edema, No Gallop, No JVD Respiratory: Chest Non Tender, Lungs Clear, Normal Breath Sounds, No Accessory Muscle Use, No Respiratory Distress Gastrointestinal: Normal Bowel Sounds, No Organomegaly, No Pulsatile Mass, Non Tender Back: Vertebral Tenderness (Right lumbar paraspinal muscle tenderness. No thoracic or lumbar midline tenderness. Limited range of motion secondary to pain of the lumbar spine.) Extremity: Other (Normal active range of motion bilateral hips. Neurovascular intact bilateral lower extremities. No swelling bruising or redness. 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 Skin: Normal Color, Warm/Dry (ROSALIE ABDI) Progress/Results/Core Measures Results/Orders Lab Results Laboratory Tests Test 03/04/23 17:49 Range/Units Urine Color YELLOW Urine Clarity CLEAR Urine pH 5.5 5-9 Urine Specific [place] >=1.030 1.016-1.022 Urine Protein NEGATIVE NEGATIVE Urine Glucose (UA) NEGATIVE NEGATIVE Urine Ketones NEGATIVE NEGATIVE Urine Nitrite POSITIVE H NEGATIVE Urine Bilirubin NEGATIVE NEGATIVE Urine Urobilinogen 0.2 < = 1.0 MG/DL Urine Leukocyte Esterase 1+ H NEGATIVE Urine RBC (Auto) NEGATIVE NEGATIVE Urine RBC NONE /HPF Urine WBC 5-10 H /HPF Urine Squamous Epithelial Cells 5-10 /HPF Urine Crystals NONE /LPF Urine Bacteria LARGE H /HPF Urine Casts NONE /LPF Urine Mucus NEGATIVE /LPF Urine Culture Indicated YES (ISAI QUINONEZ MD) Medications Given in ED Current Medications Medications Dose Ordered Sig/Ashley Route Start Time Stop Time Status Last Admin Dose Admin Cephalexin HCl 500 mg ONCE ONCE PO 03/04/23 18:15 03/04/23 18:16 DC 03/04/23 18:23 500 MG Ketorolac Tromethamine 30 mg ONCE ONCE IVP 03/04/23 18:15 03/04/23 18:16 DC 03/04/23 18:22 30 MG Methylprednisolone Sodium Succinate 80 mg ONCE ONCE IM 03/04/23 18:15 03/04/23 18:16 DC 03/04/23 18:22 80 MG Orphenadrine Citrate 60 mg ONCE ONCE IM 03/04/23 18:15 03/04/23 18:16 DC 03/04/23 18:23 60 MG (ISAI QUINONEZ MD) Vital Signs/I&O 03/04/23 03/04/23 17:37 19:16 Temp 36.5 Pulse 77 82 Resp 20 20 B/P (MAP) 104/52 (69) 112/81 Pulse Ox 100 O2 Delivery Room Air (ISAI QUINONEZ MD) Blood Pressure Mean: 69 Departure Communication (PCP) Patient has been sleeping in a truck. No specific falls. Pain over the past few months worsening pain over the past 3 days when moving furniture. She has no thoracic or lumbar midline tenderness. She has no neurological red flag findings. Denies any drug use. Afebrile. Tenderness along the right lumbar paraspinal muscle. Obtained a urinalysis which did show positive for nitrites. No specific urinary symptoms but will treat with Keflex. I do believe this is more muscular involvement. No red flag findings suggesting emergent imaging. She did receive Toradol Norflex and Solu-Medrol. Improvement of pain. She states she has been sleeping sitting in her truck which is likely associated with the pain. At this time recommending better ways of sleeping. Will discharge with Toradol, Robaxin, Medrol Dosepak. Providing stretches and exercises. Suggest follow-up your PCP in 2 to 3 days for reevaluation. If any worsening pain fever vomiting or any neurological deficits such as bowel or urine incontinence or saddle paresthesia or lower extremity weakness need to return back to ED. Patient agrees with plan of action. This appears to be more muscle strain versus muscle spasming. No sciatica type pain. Will discharge with keflex. (ROSALIE ABDI) Impression Primary Impression: Back pain Disposition: HOME, SELF-CARE Condition: Stable Departure-Patient Inst. Decision time for Depature: 18:59 (ROSALIE ABDI) Referrals: NO,LOCAL PHYSICIAN (PCP/Family) Primary Care Physician Patient Instructions: Muscle Strain (DC) Add. Discharge Instructions: Take pain medication as prescribed. Outpatient follow-up with your primary care physician for further evaluation. Take antibiotics as prescribed. If any worsening symptoms return back to ED such as bowel or urine incontinence, saddle paresthesia, lower extremity weakness. All discharge instructions reviewed with patient and/or family. Voiced understanding. Scripts Cephalexin (Cephalexin) 500 Mg Tablet 500 MG PO BID for 7 Days, #14 TAB Prov: ROSALIE ABDI 03/04/23 Methylprednisolone (Methylprednisolone Dose Pack) 4 Mg Tab.ds.pk 4 MG PO UD for 6 Days, #21 PKG PER DOSE PACK INSTRUCTIONS Prov: ROSALIE ABDI 03/04/23 Methocarbamol (Methocarbamol) 500 Mg Tablet 500 MG PO Q6-8HR for Back Pain, #20 TAB Prov: ROSALIE ABDI 03/04/23 Ketorolac Tromethamine (Ketorolac Tromethamine) 10 Mg Tablet 10 MG PO TID, #15 TAB Prov: ROSALIE ABDI 03/04/23 ATTENDING PHYSICIAN NOTE: I was physically present as attending physician in the emergency department during the care of this patient, but I was not directly involved in the decision making or delivery of care for this patient. (ISAI QUINONEZ MD) ROSALIE ABDI Mar 04, 2023 18:06 ISAI QUINONEZ MD Mar 04, 2023 20:40
[2023-03-04] MEDS ORDERED: methylPREDNISolone INJ 40 MG/ML VIAL IM ONE (18:15)
[2023-03-04] MEDS ORDERED: KETOROLAC INJ 30 MG/ML VIAL IVP ONE (18:15)
[2023-03-04] MEDS ORDERED: CEPHALEXIN 250 MG CAPSULE PO ONE (18:15)
[2023-03-04] MEDS ORDERED: ORPHENADRINE 60 MG/2 ML AMP (ED ONLY) IM ONE (18:15)
[2023-03-04] MEDS ORDERED: METH4TAB10 PO (19:00)
[2023-03-04] MEDS ORDERED: METH-731 PO (19:00)
[2023-03-04] MEDS ORDERED: KETO10TA PO (19:00)
[2023-03-04] MEDS ORDERED: CEPH500T PO (19:01)
[2023-03-04 19:16] VITALS: BP 112/81
== END 2023-03-04 19:16 | disposition home or self-care (01) ==
LOC: EDUNIT# 17:21 → ER 17:25
DX: M54.50 Low back pain, unspecified (principal); X50.0XXA Overexertion from strenuous movement or load, initial encounter
CPT/HCPCS: 81000; 87088; 99284